=== PATIENT | male | born 1970 | race Caucasian/White ===

== ENCOUNTER 2022-01-18 17:31 | Emergency (ER) | payer OTHER ==
[2022-01-18 18:12] LABS: BASOPHIL 0.4 % (0-2); EOSINOPHIL 1.8 % (0-5); HCT 38.1 % (42.0-52.0); HGB 13.2 g/dl (13.2-18.0); LYMPHOCYTE 12.3 % (15-48); MCH 33.7 pg (25.0-31.0); MCHC 34.6 g/dL (32.0-36.0); MCV 97.2 fL (78.0-100.0); MONOCYTE 6.6 % (0-12); MPV 9.9 fL (6.0-9.5); NEUTROPHIL 78.6 % (41-80); NRBC 0; PLT 139 K/uL (150-400); RBC 3.92 M/uL (4.70-6.00); RDW 14.1 % (11.5-14.0); WBC 7.9 K/uL (4.0-10.5)
[2022-01-18 18:30] LABS: BUN/CREAT RATIO (CALC) 17.6 RATIO; CREATININE 1.02 mg/dL (0.67-1.17); POTASSIUM 3.4 mmol/L (3.5-5.1)
[2022-01-18] MEDS ORDERED: CEPHALEXIN500 M1 PO (19:38)
== END 2022-01-18 19:55 | disposition home or self-care (01) ==
LOC: FER 17:31
PROVIDERS: Emergency Medicine
DX: L03.116 Cellulitis of left lower limb (principal); Z88.0 Allergy status to penicillin
CPT/HCPCS: 36415; 80048; 85025; 93971; J0696